=== PATIENT | female | born 1955 ===

== ENCOUNTER → 2018-09-22 | Outpatient (CLI) | payer OTHER ==
--- NOTE | 2018-09-22 07:47 | US ---
EXAMINATION TYPE: US carotid duplex BILAT DATE OF EXAM: 09/22/2018 COMPARISON: NONE CLINICAL HISTORY: H47.293 Other optic atrophy, bilateral, H47.013., Patient stated has glaucoma, agustín racts, and macular degeneration EXAM MEASUREMENTS: RIGHT: Peak Systolic Velocity (PSV) cm/sec ----- Right CCA: 67.7 ----- Right ICA: 59.0 ----- Right ECA: 76.5 ICA/CCA ratio: 0.9 RIGHT: End Diastole cm/sec ----- Right CCA: 26.0 ----- Right ICA: 26.7 ----- Right ECA: 1.0 LEFT: Peak Systolic Velocity (PSV) cm/sec ----- Left CCA: 65.9 ----- Left ICA: 104.4 ----- Left ECA: 51.3 ICA/CCA ratio: 1.6 LEFT: End Diastole cm/sec ----- Left CCA: 25.9 ----- Left ICA: 46.1 ----- Left ECA: 12.4 VERTEBRALS (direction of flow): Right Vertebral: Antegrade Left Vertebral: Antegrade Rhythm: Normal Mild to moderate intimal wall changes are noted at bilateral carotid bifurcation, but PSV is wnl bila terally. IMPRESSION: Mild degree of grayscale atheromatous plaquing with no sonographically evident hemodynam ically significant stenosis within either visualized carotid arterial system. Criteria for Assigning % of Stenosis / Diameter reduction (Estimation based on the indirect measurements of the internal carotid artery velocities (ICA PSV). 1. Normal (no stenosis)=ICA PSV < 125 cm/s: ratio < 2.0: ICA EDV<40 cm/s. 2. Less than 50% stenosis=ICA PSV < 125 cm/s: ratio < 2.0: ICA EDV<40 cm/s. 3. 50 to 69% stenosis=ICA PSV of 125 to 230 cm/s: ration 2.0 ? 4.0: ICA EDV 40-100 cm/s. 4. Greater than 70% stenosis to near occlusion= ICA PSV > 230 cm/s: ratio > 4.0: ICA EDV > 100 cm/s. 5. Near occlusion= ICA PSV velocities may be low or undetectable: variable ratio and ICA EDV. 6. Total occlusion=unable to detect flow.
== END | disposition home or self-care (01) ==
LOC: RADUSWWP 06:55
PROVIDERS: ATTEND Ophthalmology
DX: I67.2 Cerebral atherosclerosis (principal); H47.293 Other optic atrophy, bilateral
CPT/HCPCS: 93880

== ENCOUNTER → 2018-09-27 | Outpatient (CLI) | payer OTHER ==
--- NOTE | 2018-09-27 09:12 | MR ---
EXAMINATION TYPE: MR brain wo/w con DATE OF EXAM: 09/27/2018 8:06 AM COMPARISON: NONE HISTORY: Optic nerve pallor CONTRAST: Patient received 7 mL intravenous Gadavist gadolinium contrast. Multiplanar and multispin-echo imaging of the brain was performed . Pre and post contrast enhanced i mages are obtained. The ventricles, basal cisterns and sulci overlying the cerebral convexities are mildly enlarged. There is evidence of mild periventricular white matter ischemic demyelination. Remote deep white matter insults are also noted. No acute edema is seen on diffusion weighted imaging. There is no evidence for midline shift or mass effect. Acute intracranial hemorrhage or extra-axial collection is not evident. No enhancing lesions are seen. No distinct abnormality of the optic nerves. Correlate clinically. The paranasal sinuses and mastoid air cells are well-aerated. IMPRESSION: Age-related atrophic and chronic small vessel ischemic change. No acute intracranial process at this time. No enhancing lesions are seen.
== END | disposition home or self-care (01) ==
LOC: RADMRIMAIN 07:25
PROVIDERS: ATTEND Ophthalmology
DX: I67.82 Cerebral ischemia (principal); G31.1 Senile degeneration of brain, not elsewhere classified
CPT/HCPCS: 70553; A9585

== ENCOUNTER → 2019-03-06 | Outpatient (CLI) | payer OTHER ==
--- NOTE | 2019-03-06 12:50 | MM ---
Reason for exam: screening (asymptomatic). Last mammogram was performed 13 years and 4 months ago. History: Patient is postmenopausal. Physical Findings: A clinical breast exam by your physician is recommended on an annual basis and results should be correlated with mammographic findings. MG Screening Mammo w CAD Bilateral CC and MLO view(s) were taken. No prior studies available for comparison. The breast tissue is heterogeneously dense. This may lower the sensitivity of mammography. No suspicious abnormality. ASSESSMENT: Negative, BI-RAD 1 RECOMMENDATION: Routine screening mammogram of both breasts in 1 year.
== END ==
LOC: RADMAMWWP 10:55
PROVIDERS: ATTEND Family Medicine
DX: Z12.31 Encounter for screening mammogram for malignant neoplasm of breast (principal)
CPT/HCPCS: 77067

== ENCOUNTER → 2022-01-09 | Outpatient (CLI) | payer OTHER ==
--- NOTE | 2022-01-12 10:19 | MM ---
Reason for Exam: Screening (asymptomatic). Last mammogram was performed 2 year(s) and 10 month(s) ago. Patient History: Menarche at age 18. First Full-Term at age 20. Left ovary removed at age 20. Postmenopausal. Risk Values: Janina 5 year model risk: 1.1%. NCI Lifetime model risk: 4.3%. Prior Study Comparison: 11/05/2005 Bilateral Screening Mammogram, [facility]. 11/18/2005 Left Diagnostic Mammogram, [facility]. 03/06/2019 Bilateral Screening Mammogram, [facility]. Tissue Density: The breast tissue is heterogeneously dense. This may lower the sensitivity of mammography. Findings: Analyzed By CAD. There is no suspicious new group of microcalcifications or new suspicious mass in either breast. Overall Assessment: Negative, BI-RAD 1 Management: Screening Mammogram of both breasts in 1 year. A clinical breast exam by your physician is recommended on an annual basis and results should be correlated with mammographic findings. Electronically signed and approved by: Moises Khan M.D.
== END | disposition home or self-care (01) ==
LOC: RADMAMWWP 14:45
PROVIDERS: ATTEND Family Medicine
DX: Z12.31 Encounter for screening mammogram for malignant neoplasm of breast (principal)
CPT/HCPCS: 77067

== ENCOUNTER → 2022-02-23 | Outpatient (CLI) | payer MEDICARE ==
--- NOTE | 2022-02-24 09:40 | CA ---
Transthoracic Echo Report Name: Carmella Mack Age: 66 Gender: F : 1955 Exam Date: 02/23/2022 15:03 Exam Location: [facility] Ht (in): 69 Wt (lb): 184 Ordering Physician: Matthieu Jaeger MD Attending/Referring Phys: Heide STEVENS Trailer Mechanic Tamia Daniel RDCS Procedure CPT: Indications: R00.2 PALPITATIONS I49.9 ARRHYTHMIA Q24.8 Cardiac Hx: Technical Quality: Good Contrast 1: Total Dose (mL): Contrast 2: Total Dose (mL): MEASUREMENTS (Male / Female) Normal Values 2D ECHO LV Diastolic Diameter PLAX 4.2 cm 4.2 - 5.9 / 3.9 - 5.3 cm LV Systolic Diameter PLAX 2.7 cm IVS Diastolic Thickness 1.0 cm 0.6 - 1.0 / 0.6 - 0.9 cm LVPW Diastolic Thickness 1.1 cm 0.6 - 1.0 / 0.6 - 0.9 cm LV Relative Wall Thickness 0.5 RV Internal Dim ED PLAX 2.8 cm M-MODE Aortic Root Diameter MM 2.5 cm LA Systolic Diameter MM 3.7 cm LA Ao Ratio MM 1.5 MV E Point Septal Separation 0.3 cm AV Cusp Separation MM 2.0 cm DOPPLER MV Area PHT 2.6 cm??? Mitral E Point Velocity 47.6 cm/s Mitral A Point Velocity 66.1 cm/s Mitral E to A Ratio 0.7 MV Deceleration Time 292.3 ms MV E' Velocity 8.9 cm/s Mitral E to MV E' Ratio 5.3 FINDINGS Left Ventricle Mildly increased posterior wall thickness. Left ventricular ejection fraction is estimated at 55%. Right Ventricle Normal right ventricular size and function. Right Atrium Normal right atrial size. Left Atrium Normal left atrial size. Mitral Valve Structurally normal mitral valve. Mild mitral regurgitation. Aortic Valve Trileaflet aortic valve. Tricuspid Valve Structurally normal tricuspid valve. Pulmonic Valve Structurally normal pulmonic valve. Pericardium Normal pericardium. Aorta Normal size aortic root and proximal ascending aorta. CONCLUSIONS Normal LV size and systolic function with mild concentric LVH. No significant abnormality in the Doppler exam. No pericardial effusion Previewed by: Dr. Dante Tripathi MD (Electronically Signed) Final Date: 24 February 2022 09:39
== END | disposition home or self-care (01) ==
LOC: RADECHMAIN 14:50
PROVIDERS: ATTEND Family Medicine
DX: R00.2 Palpitations (principal); I49.9 Cardiac arrhythmia, unspecified; Q24.8 Other specified congenital malformations of heart
CPT/HCPCS: 93306

== ENCOUNTER → 2023-09-03 | Outpatient (CLI) | payer MEDICARE ==
--- NOTE | 2023-09-03 17:23 | CA ---
Exercise Stress Test Report Name: Carmella Mack Exam Date: 09/03/2023 11:13 Exam Location: [facility] Ht (in): Wt (lb): BSA: Ordering Phys: Matthieu Jaeger MD Referring Phys: MIKI Technologist: Rosales Middleton Age: 67 Gender: F : 1955 Procedure CPT: Indications: R07.9 CHEST PAIN Z82.49 FAMILY HX NC ICD-10 Codes: Patient History: Chest pain, shortness of breath and family history of heart disease. Medications: Meds past 24 hrs: Pretest Chest Pain: STRESS TEST Loc Protocol Exercise Duration (min:sec): 03:[address] Depressions (mm): Angina Score: Collins Score: Resting HR (bpm): 58 Peak HR (bpm): 140 Resting BP (mmHg): 147 / 85 Peak BP (mmHg): 195 / 86 MPHR: 155 Target HR: 132 % MPHR: 90 METS: 4.7 Total Dose: Peak Dose: Atropine: Double Product: [id number] BP Response: Stress Termination: Reached target heart rate Stress Symptoms: Knee and hip pain. Some shortness of breath that resolved with rest. Stress Summary: ECG ANALYSIS Resting ECG: Normal sinus rhythm normal axis normal intervals Stress ECG: Patient exercised on Loc protocol for 3 minutes achieving 85% of predicted maximal heart rate without chest pain or diagnostic ST segment depression CONCLUSIONS poor exercise tolerance No significant ST segment depression Dr. Roel Nguyễn MD (Electronically Signed) Final Date: 03 September 2023 17:22
== END | disposition home or self-care (01) ==
LOC: RADNMMAIN 10:44
PROVIDERS: ATTEND Family Medicine
DX: R06.02 Shortness of breath (principal); R07.9 Chest pain, unspecified; Z82.49 Family history of ischemic heart disease and other diseases of the circulatory system
CPT/HCPCS: 93017